=== PATIENT | male | born 1975 | race Caucasian/White ===

== ENCOUNTER 2018-02-27 06:49 | Emergency (ER) | payer OTHER ==
[~2018-02-27] VITALS: Ht 177.8 cm; Wt 90.9 kg
[2018-02-27] MEDS ORDERED: LIDOCAINE-MPF 1%, 2ML ONE (07:18)
[2018-02-27] MEDS ORDERED: BACITRACIN ZINC OINT 500U/GM, 0.9 GM ONE (07:19)
[2018-02-27] MEDS ORDERED: DIPH,PERTUSS(ACELL),TET VAC/PF 0.5 ML IM-VACC ONE ×2 (07:19→07:30)
[2018-02-27] MEDS ORDERED: LIDOCAINE-MPF 1%, 2ML INFIL ONE (07:30)
[2018-02-27] MEDS ORDERED: LIDOCAINE-MPF 2% ,5ML ONE (07:31)
[2018-02-27] MEDS ORDERED: LIDOCAINE-MPF 2% ,5ML SQ ONE (08:00)
[2018-02-27 08:29] VITALS: BP 137/80
== END 2018-02-27 08:41 | disposition home or self-care (01) ==
LOC: ED 08:35
DX: S81.812A Laceration without foreign body, left lower leg, initial encounter (principal); F11.10 Opioid abuse, uncomplicated; W45.8XXA Other foreign body or object entering through skin, initial encounter; Y93.89 Activity, other specified; Y92.098 Other place in other non-institutional residence as the place of occurrence of the external cause; Y99.8 Other external cause status
CPT/HCPCS: 12032; 90471; 90715; 99284

== ENCOUNTER 2018-05-08 22:32 | Emergency (ER) | payer MEDICAID, OTHER ==
[~2018-05-08] VITALS: Ht 177.8 cm; Wt 94.5 kg
[2018-05-08 22:34] VITALS: BP 126/76
[2018-05-08] MEDS ORDERED: LIDOCAINE-MPF 1%, 5ML INFIL ONE (23:00)
[2018-05-08] MEDS ORDERED: LIDOCAINE-MPF 2%, 2ML ONE (23:06)
[2018-05-08] MEDS ORDERED: CLINDAMYCIN 150 MG CAPSULE PO ONE (23:30)
[2018-05-08] MEDS ORDERED: CLINDAMYCIN 150 MG CAPSULE ONE (23:38)
== END 2018-05-09 00:04 | disposition home or self-care (01) ==
LOC: ED 23:59
DX: L03.115 Cellulitis of right lower limb (principal); L02.415 Cutaneous abscess of right lower limb; F11.10 Opioid abuse, uncomplicated; F17.200 Nicotine dependence, unspecified, uncomplicated
CPT/HCPCS: 10060; 99283

== ENCOUNTER 2018-06-09 02:01 | Emergency (ER) | payer MEDICAID ==
[~2018-06-09] VITALS: Ht 170.2 cm; Wt 92.0 kg
[2018-06-09] MEDS ORDERED: LIDOCAINE-MPF 2% ,5ML ONE (02:26)
[2018-06-09] MEDS ORDERED: LIDOCAINE 1%-EPI 1:100K, 20ML INFIL ONE (02:30)
[2018-06-09] MEDS ORDERED: SULFAMETH./TRIMETHOPRIM DS 800MG/160MG TABLET PO ONE (02:30)
[2018-06-09] MEDS ORDERED: CEPHALEXIN 500 MG CAPSULE PO ONE (02:30)
[2018-06-09] MEDS ORDERED: CEPHALEXIN 500 MG CAPSULE ONE (02:42)
[2018-06-09] MEDS ORDERED: SULFAMETH./TRIMETHOPRIM DS 800MG/160MG TABLET ONE (02:42)
[2018-06-09 03:12] VITALS: BP 129/81
== END 2018-06-09 03:14 | disposition home or self-care (01) ==
LOC: ED 03:12
DX: L03.113 Cellulitis of right upper limb (principal); L02.413 Cutaneous abscess of right upper limb; F17.200 Nicotine dependence, unspecified, uncomplicated
CPT/HCPCS: 10060; 99283

== ENCOUNTER 2018-06-10 22:34 | Emergency (ER) | payer MEDICAID ==
[~2018-06-10] VITALS: Ht 177.8 cm; Wt 94.4 kg
[2018-06-10 22:36] VITALS: BP 146/82
[2018-06-10] MEDS ORDERED: BACITRACIN ZINC OINT 500U/GM, 0.9 GM ONE (23:18)
[2018-06-10] MEDS ORDERED: SULFAMETH./TRIMETHOPRIM DS 800MG/160MG TABLET ONE (23:21)
[2018-06-10] MEDS ORDERED: CEPHALEXIN 500 MG CAPSULE ONE (23:21)
[2018-06-10 23:29] LABS: BASOPHILS # (AUTO) 0.03 x10^3/uL (0-0.1); BASOPHILS % (AUTO) 0 % (0-1); EOSINOPHILS # (AUTO) 0.56 x10^3/uL (0-0.4); EOSINOPHILS % (AUTO) 7 % (1-7); LYMPHOCYTES # (AUTO) 2.23 x10^3/uL (1-3.4); LYMPHOCYTES % (AUTO) 27 % (22-44); MD NO; MEAN CORPUSCULAR HEMOGLOBIN 26.8 pg (27.5-34.5); MEAN CORPUSCULAR HGB CONC 32.8 g/dL (33.2-36.2); MEAN CORPUSCULAR VOLUME 81.7 fL (81-97); MEAN PLATELET VOLUME 8.6 fL (7.4-10.4); MONOCYTES # (AUTO) 0.43 x10^3/uL (0.2-0.8); MONOCYTES % (AUTO) 5 % (2-9); NEUTROPHILS # (AUTO) 5.06 x10^3/uL (1.8-6.8); NEUTROPHILS % (AUTO) 61 % (42-75); PLATELET COUNT 236 x10^3/uL (130-400); RED CELL DISTRIBUTION WIDTH 14.6 % (9.4-14.8)
[2018-06-10] MEDS ORDERED: SULFAMETH./TRIMETHOPRIM DS 800MG/160MG TABLET PO ONE (23:30)
[2018-06-10] MEDS ORDERED: CEPHALEXIN 500 MG CAPSULE PO ONE (23:30)
[2018-06-10 23:41] LABS: ALBUMIN 3.2 g/dL (3.4-5.0); ANION GAP 9 mmol/L (5-15); CALCIUM 8.4 mg/dL (8.5-10.1); CHLORIDE 104 mmol/L (98-107); CREATININE 0.92 mg/dL (0.7-1.3)
== END 2018-06-11 00:25 | disposition home or self-care (01) ==
LOC: ED 06-11 00:19
DX: L03.113 Cellulitis of right upper limb (principal); F11.10 Opioid abuse, uncomplicated; F17.200 Nicotine dependence, unspecified, uncomplicated
CPT/HCPCS: 36415; 80048; 82040; 83605; 85025; 99284

== ENCOUNTER 2020-03-23 12:52 | Emergency (ER) | payer MEDICAID ==
[~2020-03-23] VITALS: Ht 180.3 cm; Wt 82.0 kg
[2020-03-23 12:57] VITALS: BP 132/88
--- NOTE | 2020-03-23 13:00 | NUR ---
bib remsa and rpd. pt was supposed to go to [facility] but pt stated "i have medical complaints." pt didn't tell what the medical complaints were. pt's aox4. hx of mrsa. resps even and unlabored. pa at bedside evaluating at this time.
== END 2020-03-23 13:31 | disposition home or self-care (01) ==
LOC: ED 13:25
DX: F11.10 Opioid abuse, uncomplicated (principal); G89.29 Other chronic pain; M54.9 Dorsalgia, unspecified
CPT/HCPCS: 36415; 86705; 86706; 86803; 87340; 87521; 87806; 99283; G0475